=== PATIENT | female | born 1965 | race Caucasian/White ===

== ENCOUNTER 2016-03-24 14:43 | Emergency (ER) | payer SELFPAY ==
[2016-03-24 14:52] VITALS: O2SAT 97
--- NOTE | 2016-03-24 15:35 | ED.PDOC ---
History of Present Illness - General Chief Complaint: ENT Problem Stated Complaint: sorethroat Time Seen by Provider: 03/24/16 15:32 Source: patient, RN notes reviewed, Vital Signs reviewed Exam Limitations: no limitations - History of Present Illness Initial Comments: This 50 y/o female comes in complaining of sore throat x 3 days. She has been exposed to strep by her grandchildren. She has a cough with shortness of breath , headache, malaise, and myalgias. Although she has not taken her temperature, she feels feverish. Timing/Duration: getting worse, other - 3 days Severity: moderate Improving Factors: nothing Worsening Factors: nothing Associated Symptoms: chest pain, cough, fever/chills, headaches, malaise, shortness of breath, weakness Allergies/Adverse Reactions: Allergies NO KNOWN ALLERGY Allergy (Verified 03/24/16 14:52) Home Medications: Ambulatory Orders Gabapentin [Neurontin] 200 mg PO TID 06/23/15 Ibuprofen [Motrin Tab] 600 mg PO TID PRN #15 tab 06/23/15 Lisinopril 20 mg PO BID 06/23/15 Amoxicillin 875 mg PO BID #20 tab 03/24/16 Benzonatate 200 mg PO TID PRN #30 cap 03/24/16 Review of Systems - Review of Systems Constitutional: States: malaise EENTM: States: nose congestion, throat pain. Denies: eye pain, ear pain Respiratory: States: cough, short of breath Cardiology: States: chest pain - from cough Gastrointestinal/Abdominal: States: no symptoms reported. Denies: nausea, vomiting Genitourinary: States: no symptoms reported Musculoskeletal: States: muscle pain Skin: States: no symptoms reported Neurological: States: headache, weakness Endocrine: States: no symptoms reported. Denies: intolerance to cold, intolerance to heat Hematologic/Lymphatic: States: no symptoms reported. Denies: anemia, easy bleeding, easy bruising All other Systems: Reviewed and Negative Past Medical History (General) - Patient Medical History Hx of COPD: No Hx Cardiac Disorders: No Hx Congestive Heart Failure: No Hx Hypertension: Yes Hx Diabetes: Yes - hypoglycemia Hx MRSA: No Surgical History: other - Vaccination History Hx Tetanus, Diphtheria Vaccination: No Hx Influenza Vaccination: No Hx Pneumococcal Vaccination: No - Social History Hx Tobacco Use: No Hx Alcohol Use: No Hx Substance Use: No Hx Substance Use Treatment: No Hx Depression: Yes Hx Physical Abuse: No Hx Emotional Abuse: No Hx Suspected Abuse: No - Activities of Daily Living Hospice Agency (if applicable):: None - Female History Patient is a Female of Child Bearing Age (10 -59 yrs old): No Patient : No Family Medical History - Family History Mother Family History: Unknown Living Status: Hx Family Cancer: Yes - colon Physical Exam - Physical Exam General Appearance: Alert, Obvious distress - mild, Obese Eye Exam: bilateral normal Ears, Nose, Throat: nasal congestion - post nasal drip, pharyngeal erythema Neck: non-tender - No LAD, supple, normal inspection Respiratory: chest non-tender, lungs clear, normal breath sounds, no respiratory distress, no accessory muscle use Cardiovascular/Chest: regular rate, rhythm, no edema, no gallop, no murmur Gastrointestinal/Abdominal: normal bowel sounds, non tender, soft, no organomegaly Extremity: normal range of motion, normal inspection Neurologic: alert, normal mood/affect, oriented x 3 Skin Exam: normal color, warm/dry Progress - Results/Orders Results/Orders: 03/24/16 14:48 Temperature 99.1 F Pulse Rate [ 87 pulse ox] Respiratory 20 Rate Blood Pressure 134/84 [Left Arm] O2 Sat by Pulse 97 Oximetry 03/24/16 14:48 STREP A SCREEN CULTURE Stat 03/24/16 15:42 INFLUENZA A & B ANTIGEN Stat Rapid strep negative Influenza A & B antigens negative - EKG/XRAY/CT XRAY: chest Xray Comments: Normal Departure - Departure Clinical Impression: Upper respiratory infection Qualifiers: URI type: unspecified URI Qualifier Code: (J06.9) Acute upper respiratory infection, unspecified Acute pharyngitis Qualifiers: Pharyngitis/tonsillitis etiology: unspecified etiology Qualifier Code: (J02.9) Acute pharyngitis, unspecified Time of Disposition: 16:36 Disposition: Discharge to Home or Self Care Condition: Fair Departure Forms: ED Discharge - Pt. Copy, Patient Portal Self Enrollment Instructions: DI for Viral Upper Respiratory Infection -- Adult, Sore Throat Diet: resume usual diet Prescriptions: Amoxicillin 875 mg PO BID #20 tab Benzonatate 200 mg PO TID PRN #30 cap PRN Reason: Cough Home Medications: Ambulatory Orders Gabapentin [Neurontin] 200 mg PO TID 06/23/15 Ibuprofen [Motrin Tab] 600 mg PO TID PRN #15 tab 06/23/15 Lisinopril 20 mg PO BID 06/23/15 Amoxicillin 875 mg PO BID #20 tab 03/24/16 Benzonatate 200 mg PO TID PRN #30 cap 03/24/16 Additional Instructions: Start antibiotic only if symptoms persist or worsen over the next 48 hours.
--- NOTE | 2016-03-24 15:53 | RAD ---
EXAM DESCRIPTION: XR CHEST 2 VIEWS CLINICAL HISTORY: cough/sob COMPARISON: May 31, 2014 FINDINGS: The cardiomediastinal silhouette is unremarkable. There is no airspace consolidation or pleural effusion. The bronchovascular markings are within normal limits, and the lungs are not hyperinflated. There is no pneumothorax or acute fracture. IMPRESSION: Negative exam. Electronically signed by: Lucas Sylvester DO 03/24/2016 15:52
[2016-03-24 16:58] VITALS: BP 135/86; TEMP 98.4
== END 2016-03-24 16:59 | disposition home or self-care (01) ==
LOC: ER 14:43
DX: J06.9 Acute upper respiratory infection, unspecified (principal); J02.9 Acute pharyngitis, unspecified; I10 Essential (primary) hypertension; E11.649 Type 2 diabetes mellitus with hypoglycemia without coma; Z79.899 Other long term (current) drug therapy

== ENCOUNTER 2016-04-23 17:36 | Emergency (ER) | payer SELFPAY ==
[2016-04-23] MEDS ORDERED: IPRATROPIUM/ALBUTEROL 3 ML VIAL NEB ONE (20:18)
--- NOTE | 2016-04-23 20:32 | RAD ---
Clinical History : cough/sob , MAIN Exam : PA and lateral views of the chest 04/23/2016 8:17 PM CARPENTER ASSISTANT Comparisons : PA and lateral views of the chest March 24, 2016 Findings : The lungs are clear without focal consolidation or pleural effusion. The heart is normal in size. The mediastinal contours are normal in appearance. There are degenerative changes throughout the thoracic spine . The ribs and shoulders are normal in appearance. Limited evaluation of the upper abdomen demonstrates no gross abnormalities. Impression: No acute cardiopulmonary disease Electronically signed by: Alex Baxter MD 04/23/2016 8:32 PM CARPENTER ASSISTANT
--- NOTE | 2016-04-23 21:15 | ED.PDOC ---
History of Present Illness - General Chief Complaint: Respiratory Problem Stated Complaint: cough Time Seen by Provider: 04/23/16 20:17 Source: patient, RN notes reviewed, Vital Signs reviewed Exam Limitations: no limitations - History of Present Illness Initial Comments: Patient is a 50 y/o female who has had a cough for 3 weeks. It is now productive and she has shortness of breath. She denies any fever/chills. She has chest pain from the coughing. She does not smoke. She does not have a history of asthma. Timing/Duration: getting worse, other - 3 weeks Severity: moderate Improving Factors: nothing Worsening Factors: nothing Associated Symptoms: chest pain, nausea/vomiting - this AM, shortness of breath Allergies/Adverse Reactions: Allergies NO KNOWN ALLERGY Allergy (Verified 03/24/16 14:52) Home Medications: Ambulatory Orders Gabapentin [Neurontin] 300 mg PO BID 06/23/15 Lisinopril 20 mg PO BID 06/23/15 Albuterol Sulfate [Proair Hfa] 2 puff INH Q6H PRN #1 04/23/16 Benzonatate 200 mg PO TID PRN #30 cap 04/23/16 Review of Systems - Review of Systems Constitutional: States: no symptoms reported. Denies: chills, fever EENTM: States: no symptoms reported. Denies: nose congestion, throat pain Respiratory: States: cough, short of breath, wheezing Cardiology: States: chest pain Gastrointestinal/Abdominal: States: vomiting Genitourinary: States: no symptoms reported Musculoskeletal: States: joint pain, muscle pain Skin: States: no symptoms reported Neurological: States: headache Endocrine: States: no symptoms reported Hematologic/Lymphatic: States: no symptoms reported All other Systems: Reviewed and Negative Past Medical History (General) - Patient Medical History Hx of COPD: No Hx Cardiac Disorders: No Hx Congestive Heart Failure: No Hx Hypertension: Yes Hx Diabetes: Yes - hypoglycemia Hx MRSA: No - Vaccination History Hx Tetanus, Diphtheria Vaccination: No Hx Influenza Vaccination: No Hx Pneumococcal Vaccination: No - Social History Hx Tobacco Use: No Hx Alcohol Use: No Hx Substance Use: No Hx Substance Use Treatment: No Hx Depression: Yes Hx Physical Abuse: No Hx Emotional Abuse: No Hx Suspected Abuse: No - Female History Patient : No Family Medical History - Family History Mother Family History: Unknown Living Status: Hx Family Cancer: Yes - colon Physical Exam - Physical Exam General Appearance: Alert, Other - coughing Ears, Nose, Throat: hearing grossly normal, normal ENT inspection, normal pharynx Neck: non-tender, full range of motion, supple, normal inspection Respiratory: lungs clear, normal breath sounds, no respiratory distress, no accessory muscle use Cardiovascular/Chest: regular rate, rhythm, no edema, no gallop, no murmur Gastrointestinal/Abdominal: normal bowel sounds, non tender, soft Extremity: normal range of motion, non-tender, normal inspection Neurologic: alert, normal mood/affect, oriented x 3 Skin Exam: normal color, warm/dry Progress - Results/Orders Results/Orders: 04/23/16 04/23/16 04/23/16 18:56 19:12 19:54 Temperature 98.7 F Pulse Rate Pulse Rate [ 85 84 Right Dorsalis Pedis] Respiratory 20 20 20 Rate Blood Pressure 155/98 158/112 [Right Arm] O2 Sat by Pulse 96 94 L Oximetry 04/23/16 20:38 Temperature Pulse Rate 93 H Pulse Rate [ Right Dorsalis Pedis] Respiratory 22 Rate Blood Pressure [Right Arm] O2 Sat by Pulse 99 Oximetry - EKG/XRAY/CT XRAY: chest Xray Comments: No acute process Departure - Departure Clinical Impression: Bronchitis Time of Disposition: 21:16 Disposition: Discharge to Home or Self Care Condition: Fair Departure Forms: ED Discharge - Pt. Copy, Patient Portal Self Enrollment Instructions: Acute Bronchitis, DI for Acute Bronchitis Diet: resume usual diet Prescriptions: Benzonatate 200 mg PO TID PRN #30 cap PRN Reason: Cough Albuterol Sulfate [Proair Hfa] 2 puff INH Q6H PRN #1 PRN Reason: Difficulty Breathing Home Medications: Ambulatory Orders Gabapentin [Neurontin] 300 mg PO BID 06/23/15 Lisinopril 20 mg PO BID 06/23/15 Albuterol Sulfate [Proair Hfa] 2 puff INH Q6H PRN #1 04/23/16 Benzonatate 200 mg PO TID PRN #30 cap 04/23/16 Additional Instructions: May take OTC Mucinex (guiafenesin). Follow up with PCP if symptoms persist or ED if symptoms worsen.
[2016-04-23] MEDS ORDERED: BENZONATATE PERLES 100 MG CAP PO ONE (21:19)
[2016-04-23 21:41] VITALS: BP 173/100; TEMP 99.3; O2SAT 97
--- NOTE | 2016-04-25 01:03 | RAD ---
Clinical History : cough/sob , MAIN Exam : PA and lateral views of the chest 04/23/2016 8:17 PM SENIOR SOFTWARE QUALITY ANALYST Comparisons : PA and lateral views of the chest March 24, 2016 Findings : The lungs are clear without focal consolidation or pleural effusion. The heart is normal in size. The mediastinal contours are normal in appearance. There are degenerative changes throughout the thoracic spine . The ribs and shoulders are normal in appearance. Limited evaluation of the upper abdomen demonstrates no gross abnormalities. Impression: No acute cardiopulmonary disease Electronically signed by: Alex Baxter MD 04/23/2016 8:32 PM SENIOR SOFTWARE QUALITY ANALYST
== END 2016-04-23 21:41 | disposition home or self-care (01) ==
LOC: ER 17:36
DX: J40 Bronchitis, not specified as acute or chronic (principal); I10 Essential (primary) hypertension; E11.649 Type 2 diabetes mellitus with hypoglycemia without coma; F32.9 Major depressive disorder, single episode, unspecified; Z79.899 Other long term (current) drug therapy

== ENCOUNTER → 2016-11-09 | Outpatient (CLI) | payer SELFPAY | END | disposition home or self-care (01) | LOC: YCFC.O 16:08 | PROVIDERS: ATTEND Nurse Practitioner Family | DX: R73.01 Impaired fasting glucose (principal); Z68.43 Body mass index [BMI] 50.0-59.9, adult ==